=== PATIENT | male | born 1980 | race Caucasian/White ===

== ENCOUNTER 2017-07-19 21:50 | Emergency (ER) | payer MEDICAID ==
[~2017-07-19] VITALS: Ht 175.3 cm; Wt 93.0 kg
[2017-07-19] MEDS ORDERED: DIAZEPAM 10 MG TABLET PO ONE (22:30)
[2017-07-19] MEDS ORDERED: CEFTRIAXONE 1 G VIAL IM ONE (22:30)
[2017-07-19] MEDS ORDERED: ONDANSETRON 4 MG TAB.RAPDIS SL ONE (22:30)
[2017-07-19] MEDS ORDERED: HYDROMORPHONE INJ 2 MG/ML DISP.SYRIN IM ONE (22:30)
[2017-07-19] MEDS ORDERED: CEFTRIAXONE 1 G VIAL ONE (22:34)
[2017-07-19] MEDS ORDERED: LIDOCAINE /MPF 1% VIAL 5 ML VIAL ONE (22:35)
[2017-07-19] MEDS ORDERED: DIAZEPAM 10 MG TABLET ONE (22:35)
[2017-07-19] MEDS ORDERED: HYDROMORPHONE INJ 0.5 MG/0.5 ML SYRINGE ONE (22:35)
[2017-07-19] MEDS ORDERED: ONDANSETRON 4 MG TAB.RAPDIS ONE (22:36)
[2017-07-19] MEDS ORDERED: LIDOCAINE 1%-EPI 1:100,000 20 ML VIAL ONE (23:10)
[2017-07-20 00:13] VITALS: BP 110/64
== END 2017-07-20 00:19 | disposition home or self-care (01) ==
LOC: ER 21:50
DX: L02.416 Cutaneous abscess of left lower limb (principal)
CPT/HCPCS: 10060; 96372 ×2; 99284; A4606; J0696; J3490 ×2; Q0162; Z7610

== ENCOUNTER 2017-07-22 10:53 | Emergency (ER) | payer MEDICAID ==
[~2017-07-22] VITALS: Ht 177.8 cm; Wt 107.5 kg
[2017-07-22 10:56] VITALS: BP 129/66
== END 2017-07-22 11:49 | disposition home or self-care (01) ==
LOC: ER 10:54
DX: Z48.01 Encounter for change or removal of surgical wound dressing (principal); L02.416 Cutaneous abscess of left lower limb
CPT/HCPCS: A4606; Z7502; Z7610

== ENCOUNTER 2021-02-17 20:27 | Inpatient (IN) | payer SELFPAY ==
[~2021-02-17] VITALS: Ht 175.3 cm; Wt 119.7 kg
--- NOTE | 2021-02-17 20:36 | NUR ---
BIB C/O GENERALIZED ABD PAIN 02/08 DESCRIBED HEAVINESS, SOB, AND NASUEA/VOMITTING. DENIES ANY C/P. SATTING 100% RA 24 RR WITH LABORED RESPIRATIONS. IV 18G STARTED RAC BLOOD DRAWN AND SENT TO LAB. WAS AT BEDSIDE FOR EVAL.
[2021-02-17] MEDS ORDERED: IPRATROPIUM NEB FS 0.5 MG/2.5 ML AMPUL.NEB ONE (20:47)
[2021-02-17] MEDS ORDERED: ALBUTEROL FS 2.5 MG/3 ML VIAL.NEB ONE (20:47)
[2021-02-17] MEDS ORDERED: ONDANSETRON HCL/PF 4 MG/2 ML VIAL ONE ×2 (20:49→22:20)
[2021-02-17] MEDS ORDERED: MORPHINE SULFATE INJ 4 MG/ML DISP.SYRIN ONE ×2 (20:50→22:20)
--- NOTE | 2021-02-17 20:50 | NUR ---
RT AT BEDSIDE FOR BREATHING TREATMENT
[2021-02-17] MEDS ORDERED: IPRATROPIUM NEB FS 0.5 MG/2.5 ML AMPUL.NEB NEB ONE (21:00)
[2021-02-17] MEDS ORDERED: ONDANSETRON HCL/PF 4 MG/2 ML VIAL IVP ONE (21:00)
[2021-02-17] MEDS ORDERED: IV NS 0.9% 1,000 ML BAG IV ONE (21:00)
[2021-02-17] MEDS ORDERED: MORPHINE SULFATE INJ 2 MG/ML DISP.SYRIN IV ONE ×2 (21:00→22:30)
[2021-02-17] MEDS ORDERED: ALBUTEROL FS 2.5 MG/3 ML VIAL.NEB NEB ONE (21:00)
--- NOTE | 2021-02-17 21:02 | NUR ---
COVID TEST SENT TO LAB
[2021-02-17 21:06] LABS: BASOPHILS # (AUTO) 0.1 K/uL (0.0-0.2); BASOPHILS % (AUTO) 0.4 % (0.0-2.0); HEMATOCRIT 49 % (39-51); HEMOGLOBIN 16.6 g/dL (13.5-17.5); LYMPHOCYTES # (AUTO) 1.2 K/uL (0.8-4.8); LYMPHOCYTES % (AUTO) 9.4 % (20.0-44.0); MEAN CORPUSCULAR HGB CONC 34 g/dl (31.0-36.0); MEAN CORPUSCULAR VOLUME 92 fL (80-96); MONOCYTES # (AUTO) 0.2 K/uL (0.1-1.30); MONOCYTES % (AUTO) 1.9 % (2.0-12.0); NEUTROPHILS # (AUTO) 11.6 K/uL (1.8-8.9); NEUTROPHILS % (AUTO) 88.3 % (43.0-81.0); PLATELET COUNT (AUTO) 299 K/uL (150-450); RED BLOOD CELL COUNT(AUTO) 5.36 MIL/uL (4.5-6.0); WHITE BLOOD COUNT (AUTO) 13.1 K/uL (4.3-11.0)
[2021-02-17 21:15] LABS: CARBON DIOXIDE 21 mmol/L (21-32); CHLORIDE 100 mmol/L (98-107); CREATININE 0.9 mg/dL (0.6-1.3); GLUCOSE 115 mg/dL (74-106); POTASSIUM 3.2 mmol/L (3.5-5.1); SODIUM SERUM 135 mmol/L (136-145); UREA NITROGEN, BLOOD 12 mg/dL (7-18)
[2021-02-17 21:20] LABS: ALANINE AMINOTRANSFERASE 32 U/L (12-78); ALBUMIN 4.5 g/dL (3.4-5.0); ALKALINE PHOSPHATASE 85 U/L (46-116); ASPARTATE AMINOTRANSFERASE 11 U/L (15-37); BILIRUBIN,DIRECT 0.2 mg/dL (0.0-0.2); BILIRUBIN,TOTAL 0.7 mg/dL (0.2-1.0); LIPASE 118 U/L (73-393); TOTAL PROTEIN, SERUM 8.3 g/dL (6.4-8.2)
--- NOTE | 2021-02-17 21:23 | NUR ---
PT REPORTS IMPROVEMENT IN SOB RR 18 02 SAT 100% RESPIRATION EVEN AND UNLABORED. ABD PAIN DECREASED TO 5/10.
[2021-02-17] MEDS ORDERED: LORAZEPAM INJ 2 MG/ML VIAL ONE (21:37)
--- NOTE | 2021-02-17 21:44 | NUR ---
PT TAKEN TO CT
--- NOTE | 2021-02-17 21:59 | NUR ---
URINE SENT TO LAB
[2021-02-17] MEDS ORDERED: LORAZEPAM INJ 2 MG/ML VIAL IV ONE (22:00)
[2021-02-17] MEDS ORDERED: hydrALAZINE HCL IV 20 MG VIAL IV PRN (22:30)
[2021-02-17] MEDS ORDERED: MORPHINE SULFATE INJ 2 MG/ML DISP.SYRIN IV PRN (22:30)
[2021-02-17] MEDS ORDERED: ACETAMINOPHEN 325 MG TABLET PO PRN (22:30)
[2021-02-17] MEDS ORDERED: ONDANSETRON HCL/PF - ER 4 MG/2 ML VIAL IV ONE (22:30)
[2021-02-17] MEDS ORDERED: IV NS 0.9% 1,000 ML IV PRN (22:30)
[2021-02-17] MEDS ORDERED: ONDANSETRON HCL/PF 4 MG/2 ML VIAL IVP PRN (22:30)
--- NOTE | 2021-02-17 22:30 | NUR ---
PT REPORTS /10 ABD PAIN AND CONTINUED NASUEA. MEDICATIONS ADMINISTERRED. PT RESTING COMOFORTABLY IN BED RESPIRATIONS EVEN AND UNLABORED EASILY AROUSABLE.
[2021-02-17 22:37] LABS: BILIRUBIN,URINE NEGATIVE (NEGATIVE); COLOR,URINE YELLOW (YELLOW); LEUKOCYTE ESTERASE ,URINE NEGATIVE (NEGATIVE); NITRITE, URINE NEGATIVE (NEGATIVE); PH,URINE 8.5 (5.0-8.0); PROTEIN,URINE NEGATIVE (NEGATIVE); UGLUCOSE NEGATIVE (NEGATIVE); UROBILINOGEN,URINE 0.2 EU/dL (0.2)
[2021-02-17] MEDS ORDERED: POTASSIUM CL. PREMIX PERIPHER. 100 ML ONE (22:42)
[2021-02-17] MEDS: POTASSIUM CL. PREMIX PERIPHER. 50 ML IV SCH (22:54)
--- NOTE | 2021-02-17 22:54 | NUR ---
US TECH AT BED SIDE
--- NOTE | 2021-02-17 23:19 | NUR ---
TELE 808-3
[2021-02-18] VITALS: BP 115/75
--- NOTE | 2021-02-18 00:04 | NUR ---
REPORT GIVEN TO KARY
--- NOTE | 2021-02-18 00:16 | NUR ---
PT TRANSFERRED TO 3W WITH TELE PRECAUTIONS
--- NOTE | 2021-02-18 00:20 | NUR ---
TELE ADMISSION NOTE PATIENT ARRIVED ON FLOOR, ALERT/ORIENTED X 4, PT ABLE TO MAKE NEEDS KNOWN. PATIENT REPORTS ABDOMINAL PAIN HAS SUBSIDED 2/10 NOW, PT DENIES SOB, CHEST PAIN AND N/V AT THIS TIME. LEFT AC #18G INTACT AND FLUSHING WELL. PER DR. CHAVARRIA PATIENT IS NPO FOR NOW. ER NURSE ENDORSED ONE BAG OF POTASSIUM THAT NEEDS TO BE HUNG. PATIENT BELONGINGS DOCUMENTED AND PLACED IN CHART. ORIENTED PATIENT TO ROOM AND HOW TO USE CALL LIGHT. SAFETY MEASURES IN PLACE: CALL LIGHT WITHIN REACH, BED LOCKED IN LOW POSITION, SIDE RAILS UP X 2. WILL CONTINUE TO MONITOR PATIENT
[2021-02-18 00:35] LABS: BACTERIA,URINE None seen /HPF (None Seen); MUCUS,URINE Few /LPF (None Seen); SQUAMOUS EPITHELIAL CELL,UR Few /HPF (None Seen); WBC,URINE 0-2 /HPF (0-3)
[2021-02-18] MEDS: POTASSIUM CL. PREMIX PERIPHER. 50 ML IV SCH (01:07)
[2021-02-18 04:00] VITALS: BP 126/60
--- NOTE | 2021-02-18 07:15 | NUR ---
TRAINING GENERALIST OPENING NOTES PATIENT SLEEPING IN BED, NO S/S OF DISTRESS OR SOB NOTED, BREATHING EVEN AND UNLABORED. PATIENT DID NOT REPORT ANY ABDOMINAL PAIN, CHEST PAIN, SOB, OR N/V. WITH LEFT AC #18G RUNNING NS @ 125 ML/HR. PATIENT KEPT ON NPO ORDERED. PATIENT FOR CT ANGIO ORDERED. SAFETY MEASURES IN PLACE: BED LOCKED IN LOW POSITION, SIDE RAILS UP X 2, CALL LIGHT WITHIN REACH. WILL CONTINUE TO MONITOR PATIENT.
--- NOTE | 2021-02-18 07:25 | NUR ---
STATISTICIAN MATHEMATICAL CLOSING NOTES PATIENT SLEEPING IN BED, NO S/S OF DISTRESS OR SOB NOTED, BREATHING EVEN AND UNLABORED. PATIENT DID NOT REPORT ANY ABDOMINAL PAIN, CHEST PAIN, SOB, OR N/V THROUGHOUT SHIFT. LEFT AC #18G RUNNING NS @ 125 ML/HR. MEDICATIONS GIVEN ORDERED, PT NEEDS MET THROUGHOUT SHIFT. PT REMAINED NPO. CONSENT SIGNED FOR CT ANGIO. SAFETY MEASURES IN PLACE: BED LOCKED IN LOW POSITION, SIDE RAILS UP X 2, CALL LIGHT WITHIN REACH. ENDORSED TO DAY SHIFT NURSE FOR CONTINUITY OF CARE Addendum: 02/18/21 at 0733 by KARY TOBIN RN PATIENT ON EXTERNAL FARM MANAGEMENT SUPERVISOR READING SINUS BOBBI
[2021-02-18 08:03] VITALS: BP 127/66
[2021-02-18] MEDS ORDERED: ENOXAPARIN SODIUM 40 MG/0.4 ML DISP.SYRIN SQ SCH (09:00)
[2021-02-18 09:07] LABS: BASOPHILS % (AUTO) 0.1 % (0.0-2.0); EOSINOPHILS % (AUTO) 0.1 % (0.0-6.0); HEMATOCRIT 46 % (39-51); HEMOGLOBIN 15.6 g/dL (13.5-17.5); LYMPHOCYTES # (AUTO) 2.1 K/uL (0.8-4.8); LYMPHOCYTES % (AUTO) 15.4 % (20.0-44.0); MEAN CORPUSCULAR HGB CONC 34 g/dl (31.0-36.0); MEAN CORPUSCULAR VOLUME 93 fL (80-96); MONOCYTES # (AUTO) 1.2 K/uL (0.1-1.30); NEUTROPHILS # (AUTO) 10.1 K/uL (1.8-8.9); NEUTROPHILS % (AUTO) 75.4 % (43.0-81.0); PLATELET COUNT (AUTO) 267 K/uL (150-450); RED BLOOD CELL COUNT(AUTO) 4.92 MIL/uL (4.5-6.0); WHITE BLOOD COUNT (AUTO) 13.5 K/uL (4.3-11.0)
[2021-02-18] MEDS ORDERED: IOHEXOL-350 100 ML VIAL IV ONE (09:13)
[2021-02-18] MEDS ORDERED: IV NS 0.9% 250 ML IV ONE (09:14)
[2021-02-18] MEDS ORDERED: CT SWABBABLE VALVE TRANS SET 1 EA INFUS.SET MC ONE (09:14)
[2021-02-18] MEDS ORDERED: METOPROLOL TARTRATE INJ 5 MG/5 ML AMPUL ONE (09:14)
[2021-02-18] MEDS ORDERED: NITROGLYCERIN 0.4 MG/TAB BOTTLE ONE (09:14)
[2021-02-18] MEDS ORDERED: METOPROLOL TARTRATE INJ 5 MG/5 ML AMPUL IVP PRN (09:30)
[2021-02-18] MEDS ORDERED: NITROGLYCERIN 0.4 MG/TAB BOTTLE SL ONE (09:30)
[2021-02-18] MEDS ORDERED: PANTOPRAZOLE 40 MG TABLET.DR PO ONE (09:35)
[2021-02-18 09:37] VITALS: BP 125/53
[2021-02-18 09:40] LABS: ALBUMIN 3.7 g/dL (3.4-5.0); BILIRUBIN,TOTAL 0.7 mg/dL (0.2-1.0); CALCIUM, SERUM 7.9 mg/dL (8.5-10.1); CREATININE 0.8 mg/dL (0.6-1.3); MAGNESIUM 2.3 mg/dL (1.8-2.4); PHOSPHORUS 3.4 mg/dL (2.5-4.9); POTASSIUM 3.3 mmol/L (3.5-5.1)
--- NOTE | 2021-02-18 09:41 | NUR ---
pt consented to CTA heart; no metoprolol given as pt s HR aslready below 60's ; was givent NTG 0.4 mg SL x1; tolerated procedure; VSS; report given to LUIS Kelley, sent back to floor via wheelchair
--- NOTE | 2021-02-18 15:30 | NUR ---
SEAM CLOSER NOTE PATIETN DISCHARGED ORDERED BY MD. IN STABLE CONDITION. HEALTH TEACHING DONE REGARDING DISCHARGE. PATIENT VERBALIZED UNDERSTANDING AND APPRECIAITION. IV ACCESS REMOVED. TOLERATED WELL. NOT IN DISTRESS. ACCOMPANIED PATIENT TO LOBBY. DISCHARGED ORDERED IN STABLE CONDITION. ENDORSED ACCORDINGLY.
--- NOTE | 2021-02-19 07:15 | NUR ---
CIVIL ENGINEER HELPER OPENING NOTES PATIENT SLEEPING IN BED, NO S/S OF DISTRESS OR SOB NOTED, BREATHING EVEN AND UNLABORED. PATIENT DID NOT REPORT ANY ABDOMINAL PAIN, CHEST PAIN, SOB, OR N/V. WITH LEFT AC #18G RUNNING NS @ 125 ML/HR. PATIENT KEPT ON NPO ORDERED. PATIENT FOR CT ANGIO ORDERED. SAFETY MEASURES IN PLACE: BED LOCKED IN LOW POSITION, SIDE RAILS UP X 2, CALL LIGHT WITHIN REACH. WILL CONTINUE TO MONITOR PATIENT. Addendum: 02/19/21 at 1521 by DMITRIY MACK RN WRONG ENTRY
--- NOTE | 2021-02-19 11:50 | NUR ---
FINISHING OPERATOR NOTE CT SCAN DONE ORDERED IN STABLE CONDITION.
== END 2021-02-18 15:04 | disposition home or self-care (01) | DRG 897 ==
LOC: ER 20:28 → TELE 23:22 → MED 02-18 10:13
PROVIDERS: ADMIT Internal Medicine; ATTEND Student in an Organized Health Care Education/Training Program
DX: F12.188 Cannabis abuse with other cannabis-induced disorder (principal); E66.9 Obesity, unspecified; E87.6 Hypokalemia; Z68.39 Body mass index [BMI] 39.0-39.9, adult; R11.2 Nausea with vomiting, unspecified; F12.10 Cannabis abuse, uncomplicated; D72.829 Elevated white blood cell count, unspecified; Z20.822 Contact with and (suspected) exposure to COVID-19; R10.9 Unspecified abdominal pain; F14.10 Cocaine abuse, uncomplicated
CPT/HCPCS: 36415; 71045-TC; 75574; 80048-TC; 80053-TC; 80076-TC; 81001; 83605-TC; 83690-TC; 83735-TC; 83880; 84100-TC; 84484-TC; 85025-TC; 87040-TC; 87081-TC; 93307-TC; C9803; G0378; G0480; J1650; J2060; J2270; J2405; J3480; J3490; J7030; J7050; Q9967

== ENCOUNTER 2021-07-14 04:35 | Emergency (ER) | payer MEDICAID ==
[~2021-07-14] VITALS: Ht 177.8 cm; Wt 117.9 kg
--- NOTE | 2021-07-14 04:54 | NUR ---
BIBS C/O RIGHT RIB PAIN X1 DAY WORST WHEN COUGHING. PATIENT ALERT AND ORIENTED X3. AMBULATORY WITH NON LABORED BREATHING PLACED IN BED 03 ON MONITOR AND POX.
--- NOTE | 2021-07-14 04:59 | NUR ---
URINE COLLECTED AND SENT TO LAB
[2021-07-14] MEDS ORDERED: IBUPROFEN 600 MG TABLET PO ONE (07:30)
[2021-07-14] MEDS ORDERED: HYDROCODONE/APAP 10/325MG TABLET PO ONE (07:30)
[2021-07-14] MEDS ORDERED: IBUPROFEN 600 MG TABLET ONE (07:32)
[2021-07-14] MEDS ORDERED: HYDROCODONE/APAP 10/325MG TABLET ONE (07:32)
[2021-07-14 08:14] LABS: BASOPHILS % (AUTO) 0.2 % (0.0-2.0); EOSINOPHILS % (AUTO) 0.9 % (0.0-6.0); HEMATOCRIT 42 % (39-51); HEMOGLOBIN 14.2 g/dL (13.5-17.5); MEAN CORPUSCULAR HGB CONC 34 g/dl (31.0-36.0); MEAN CORPUSCULAR VOLUME 93 fL (80-96); MONOCYTES # (AUTO) 0.8 K/uL (0.1-1.30); MONOCYTES % (AUTO) 7.7 % (2.0-12.0); NEUTROPHILS % (AUTO) 71.2 % (43.0-81.0); PLATELET COUNT (AUTO) 238 K/uL (150-450); RED BLOOD CELL COUNT(AUTO) 4.46 MIL/uL (4.5-6.0); WHITE BLOOD COUNT (AUTO) 9.9 K/uL (4.3-11.0)
[2021-07-14 08:30] LABS: ALBUMIN 3.4 g/dL (3.4-5.0); BILIRUBIN,DIRECT 0.1 mg/dL (0.0-0.2); BILIRUBIN,TOTAL 0.3 mg/dL (0.2-1.0); CALCIUM, SERUM 8.2 mg/dL (8.5-10.1); CREATININE 0.8 mg/dL (0.6-1.3); POTASSIUM 3.9 mmol/L (3.5-5.1); TOTAL PROTEIN, SERUM 6.4 g/dL (6.4-8.2)
[2021-07-14 09:02] LABS: BILIRUBIN,URINE NEGATIVE (NEGATIVE); COLOR,URINE YELLOW (YELLOW); LEUKOCYTE ESTERASE ,URINE NEGATIVE (NEGATIVE); NITRITE, URINE NEGATIVE (NEGATIVE); PROTEIN,URINE NEGATIVE (NEGATIVE); UGLUCOSE NEGATIVE (NEGATIVE); UROBILINOGEN,URINE 0.2 EU/dL (0.2)
[2021-07-14] MEDS ORDERED: TRAM50TA2 PO (10:09)
[2021-07-14] MEDS ORDERED: IBUP-1955 PO (10:09)
--- NOTE | 2021-07-14 10:43 | NUR ---
Patient discharged to home in stable condition. Written and verbal after care instructions given. Patient verbalizes understanding of instruction.
[2021-07-14 10:44] VITALS: BP 134/69
== END 2021-07-14 10:44 | disposition home or self-care (01) ==
LOC: ER 04:39
DX: S20.211A Contusion of right front wall of thorax, initial encounter (principal); X50.0XXA Overexertion from strenuous movement or load, initial encounter; Y93.89 Activity, other specified; Y92.89 Other specified places as the place of occurrence of the external cause; Y99.0 Civilian activity done for income or pay
CPT/HCPCS: 36415; 71100-TC; 80048-TC; 80076-TC; 83690-TC; 85025-TC